=== PATIENT | female | born 1990 | race Caucasian/White ===

== ENCOUNTER 2018-11-06 17:13 | Emergency (ER) | payer OTHER ==
--- NOTE | 2018-11-06 18:05 | EDM.PDOC ---
ED HPI GENERAL MEDICAL PROBLEM - General Chief Complaint: Skin Complaint Stated Complaint: BUG BITE ON FINGER Time Seen by Provider: 11/06/18 18:00 Source of Information: Reports: Patient History Limitations: Reports: No Limitations - History of Present Illness INITIAL COMMENTS - FREE TEXT/NARRATIVE: Ashkan is a 27 year old female who presents to the ED with concerns about finger swelling. Patient was stung by an insect four hours prior to arrival, took some Benadryl with no improvement in her symptoms. Patient is concerned because affected finger feels "funny". Onset: Today - Related Data Allergies Allergy/AdvReac Type Severity Reaction Status Date / Time No Known Allergies Allergy Verified 11/06/18 17:46 Home Meds: Home Meds NK [No Known Home Meds] 11/06/18 [History] Past Medical History - Past Health History Medical/Surgical History: Denies Medical/Surgical History Social & Family History - Tobacco Use Smoking Status *Q: Never Smoker - Recreational Drug Use Recreational Drug Use: No ED ROS GENERAL - Review of Systems Review Of Systems: ROS reveals no pertinent complaints other than HPI. ED EXAM, SKIN/RASH Exam: See Below Exam Limited By: No Limitations General Appearance: Alert, WD/WN, No Apparent Distress Throat/Mouth: Normal Inspection Respiratory/Chest: No Respiratory Distress Cardiovascular: Regular Rate, Rhythm Extremities: Non-Tender, Slow Capillary Refill, Other (swelling to left ring finger, able to slightly bend, no erythema or heat. No stinger present, swelling limited to digit only). No: Increased Warmth Neurological: Alert, Oriented Psychiatric: Normal Affect, Normal Mood Skin: Warm, Dry Lymphatic: No Adenopathy Course - Vital Signs Last Recorded V/S: Last Vital Signs Temp 35.7 C 11/06/18 17:40 Pulse 69 11/06/18 17:40 Resp 20 11/06/18 17:40 BP 138/85 11/06/18 17:40 Pulse Ox 99 11/06/18 17:40 Ashkan is a 27 year old otherwise healthy female, presents to the ED today with swollen finger since being stung by unknown insect. Please refer to HPI and focused exam. Patient has findings on exam are consistent with local inflammatory response to insect bite. Supportive care discussed, reasons to return discussed, patient agreeable and discharged in stable condition. Departure - Departure Time of Disposition: 18:15 Disposition: Home, Self-Care 01 Clinical Impression: Insect bite of finger with local reaction Qualifiers: Encounter type: initial encounter Qualified Code(s): S60.469A - Insect bite ( nonvenomous) of unspecified finger, initial encounter; W57.XXXA - Bitten or stung by nonvenomous insect and other nonvenomous arthropods, initial encounter - Discharge Information Instructions: Insect Bite, Adult, [id number] Referrals: PCP,None [Primary Care Provider] - Additional Instructions: Ashkan, this appears consistent with a local reaction to insect bite. It will likely stay swollen for a couple of days. Benadryl 25 mg every 4-6 hours as needed. You can take a Claritin or Zyrtec daily for the next few days. Ibuprofen 600 mg every 6 hours for inflammation and swelling, ice and elevation will help as well. If you develop any redness/warmth to finger I would like to see you again or be seen again to make sure it isn't getting infected. Hope you have a nice rest of your time here.
== END 2018-11-06 18:16 | disposition home or self-care (01) ==
LOC: EDBD 17:13 → JP.ED 17:13
DX: S60.465A Insect bite (nonvenomous) of left ring finger, initial encounter (principal); W57.XXXA Bitten or stung by nonvenomous insect and other nonvenomous arthropods, initial encounter
CPT/HCPCS: 99282